=== PATIENT | female | born 1990 | race Caucasian/White ===

== ENCOUNTER 2019-06-07 14:50 | Inpatient (IN) | payer OTHER ==
[~2019-06-07] VITALS: Ht 154.9 cm; Wt 62.1 kg
[2019-06-19] MEDS ORDERED: PRENATAL CAPLE1 EAC1 PO (09:15)
[2019-06-19] MEDS ORDERED: PREVACID30 M1 PO (09:15)
[2019-06-19] MEDS ORDERED: FOLIC ACID20 MG PO (09:15)
== END 2019-06-21 12:43 | disposition home or self-care (01) | DRG 807 ==
LOC: LDR 06-19 07:24 → OB/GYN 06-19 07:24
PROVIDERS: ADMIT Specialist
PROC: 10E0XZZ Delivery of Products of Conception, External Approach (ICD-10-PCS; principal; 2019-06-19)
PROC: 4A033R1 Measurement of Arterial Saturation, Peripheral, Percutaneous Approach (ICD-10-PCS; 2019-06-19)
PROC: 4A1HXFZ Monitoring of Products of Conception, Cardiac Rhythm, External Approach (ICD-10-PCS; 2019-06-19)
DX: O99.820 Streptococcus B carrier state complicating pregnancy (principal); Z37.0 Single live birth; Z3A.39 39 weeks gestation of pregnancy